=== PATIENT | male | born 1985 | race Caucasian/White ===

== ENCOUNTER 2017-11-08 19:24 | Emergency (ER) | payer MEDICARE ==
[~2017-11-08] VITALS: Ht 180.3 cm; Wt 105.4 kg
[2017-11-08 19:51] VITALS: BP 175/92
[2017-11-08] MEDS ORDERED: TRAM50TA2 PO (21:19)
[2017-11-08] MEDS ORDERED: ACYC400T PO (21:19)
== END 2017-11-08 21:25 | disposition home or self-care (01) ==
LOC: ER 19:26
DX: Z76.0 Encounter for issue of repeat prescription (principal)
CPT/HCPCS: 99283